=== PATIENT | female | born 2005 | race Caucasian/White ===

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

== ENCOUNTER 2024-07-15 21:11 | Emergency (ER) | payer OTHER, SELFPAY ==
[2024-07-15 21:12] VITALS: BP 124/70; PULSE 93; RESP 18; TEMP 36.6; O2SAT 99; BMI 27.3
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
--- NOTE | 2024-07-15 21:30 | RAD_ITS ---
PROCEDURE: CHEST PA AND LATERAL REASON FOR EXAM: COUGH TECHNIQUE: PA and lateral views of the chest. COMPARISON: None. FINDINGS: The lungs are clear. No pneumothorax or pleural effusion. The cardiac and mediastinal contours appear within limits. Mild S shaped thoracolumbar curvature, scoliosis. RAD/Chest PA and Lateral IMPRESSION: No evidence of acute process. Reading Location: [id number]
[2024-07-15] MEDS: Ibuprofen 600 MG Tablet PO (21:34)
[2024-07-15 22:05] VITALS: BP 124/73; PULSE 72; RESP 18; TEMP 36.6; O2SAT 100
== END 2024-07-15 22:06 | disposition home or self-care (01) ==
PROVIDERS: Emergency Provider Emergency Medicine; PCP Nurse Practitioner Primary Care; Visit Provider Emergency Medicine
DX: S20.212A Contusion of left front wall of thorax, initial encounter (principal); V43.62XA Car passenger injured in collision with other type car in traffic accident, initial encounter
CPT/HCPCS: 71046; 99282